=== PATIENT | male | born 1950 | race Caucasian/White ===

== ENCOUNTER 2018-06-18 09:02 | Emergency (ER) | payer OTHER ==
[~2018-06-18] VITALS: Ht 182.9 cm; Wt 70.3 kg
[2018-06-18 09:16] VITALS: BP 102/71
[2018-06-18] MEDS ORDERED: methylPREDNISolone SOD SUCC 125 MG/2 ML VL IM ONE (10:00)
[2018-06-18] MEDS ORDERED: KETOROLAC TROMETH 60MG/2ML VIAL IM ONE (10:00)
== END 2018-06-18 10:54 | disposition home or self-care (01) ==
LOC: ER 09:02
DX: M54.16 Radiculopathy, lumbar region (principal); M54.5 Low back pain; G89.29 Other chronic pain
CPT/HCPCS: 93005; 96372; 99283; J1885; J2930